=== PATIENT | female | born 1950 | race Caucasian/White ===

== ENCOUNTER 2017-10-08 12:07 | Emergency (ER) | payer OTHER, MEDICARE ==
[~2017-10-08] VITALS: Ht 162.6 cm; Wt 90.1 kg
[~2017-10-08 12:07] MED LIST: CELE200C PO; DOCU1CAP39 PO; ENOX40P SQ; GLIP5 PO; LOSA25 PO; METF850T PO; NOVOLOGSS SQ; SIMV10 PO; TELM40 PO; TEMA15 PO; THERM PO; TRAM50 PO; Z.0.CPM
[2017-10-08 12:08] VITALS: BP 200/93; PULSE 105; RESP 16; TEMP 98.4; O2SAT 98
[2017-10-08] MEDS ORDERED: METF1000 PO (12:32)
[2017-10-08] MEDS ORDERED: SITA25 PO (12:32)
[2017-10-08] MEDS ORDERED: GLYB5TAB3 PO (12:32)
[2017-10-08] MEDS ORDERED: TELM1TAB PO (12:32)
[2017-10-08] MEDS ORDERED: SIMV10TA PO (12:32)
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
== END 2017-10-08 14:00 | disposition home or self-care (01) ==
LOC: PHEFT 12:07
DX: S43.51XA Sprain of right acromioclavicular joint, initial encounter (principal); M25.562 Pain in left knee; M19.90 Unspecified osteoarthritis, unspecified site; E78.00 Pure hypercholesterolemia, unspecified; E11.9 Type 2 diabetes mellitus without complications; I10 Essential (primary) hypertension; V43.52XA Car driver injured in collision with other type car in traffic accident, initial encounter; Z79.899 Other long term (current) drug therapy; Z88.6 Allergy status to analgesic agent
CPT/HCPCS: 73000; 73030; 73564; 99284